=== PATIENT | male | born 1980 | race Caucasian/White ===

== ENCOUNTER 2023-04-04 09:08 | Emergency (ER) | payer BC, OTHER | END 2023-04-04 10:27 | disposition home or self-care (01) | LOC: LL.ED 09:08 | DX: S93.412A Sprain of calcaneofibular ligament of left ankle, initial encounter (principal); Z88.8 Allergy status to other drugs, medicaments and biological substances; X50.1XXA Overexertion from prolonged static or awkward postures, initial encounter; Y99.0 Civilian activity done for income or pay | CPT/HCPCS: 73600-LT; 99283 ==